=== PATIENT | female | born 2000 | race Caucasian/White ===

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

== ENCOUNTER 2019-03-08 01:25 | Outpatient (CLI) | payer MEDICAID, SELFPAY ==
--- NOTE | 2019-03-08 15:04 | DI.MRI_ITS ---
EXAM: MR BRAIN WO CLINICAL HISTORY: paraesthesias, ?MS R20.2 PARESTHESIA OF SKIN TECHNIQUE: Multiplanar multisequence MRI of the brain was performed. COMPARISON: No exams were available for comparison FINDINGS: The ventricular system is normal in appearances. No signal abnormality identified in the brain. The orbital and temporal bone structures appears intact as does the pituitary. Diffusion weighted imaging shows No evidence of infarction. Susceptibility weighted imaging shows no evidence of intracranial hemorrhage. There is normal flow void in the skull valley of Page vasculature. IMPRESSION: Normal brain MRI
== END 2019-03-08 01:45 ==
PROVIDERS: PCP Pediatrics; Visit Provider Psychiatry & Neurology Neurology
DX: R20.2 Paresthesia of skin (principal)
CPT/HCPCS: 70551

== ENCOUNTER 2020-05-02 11:27 | Outpatient (REF) | payer MEDICAID, SELFPAY ==
--- NOTE | 2020-05-02 11:00 | PAPFT_PTH ---
PATIENT: Arabella Whaley LOC: [facility] U#:[id number] AGE/SX: 20/F ROOM: RE05/02/[address]: Ivette Woods APRN : 2000 BED: DIS: 05/02/2020 SPEC #: [id number] RECD: 05/02/20 12:52 STATUS: JACK REQ #: [id number] GEORGE: 05/02/20 11:[address]: Ivtete Woods DEPT: [facility] Cytology RECD BY: Arlin Mccarty ENTERED: 05/02/20 12:53 SP TYPE: PAPFT OTHR DR: Susanna Morrison APRN Tissues: 1 - CX/ENDOCX FOR PAP SMEARS Procedures: PAP THIN PREP/UVM Screening Comments: [id number]
[2020-05-05 14:57] LABS: Chlamydia Result Negative (Negative); GC Result Negative (Negative)
== END 2020-05-02 11:28 | disposition home or self-care (01) ==
LOC: LBN 11:27
PROVIDERS: PCP Nurse Practitioner; Referring Provider Nurse Practitioner; Visit Provider Nurse Practitioner Adult Health
DX: Z11.3 Encounter for screening for infections with a predominantly sexual mode of transmission (principal); Z12.4 Encounter for screening for malignant neoplasm of cervix
CPT/HCPCS: 87491; 87591; 88142; 87480; 87510; 87660

== ENCOUNTER 2020-10-13 16:52 | Emergency (ER) | payer MEDICAID, SELFPAY ==
[2020-10-13 17:12] VITALS: BP 154/110; PULSE 106; RESP 18; TEMP 36.8; O2SAT 99
[2020-10-13 19:30] LABS: Abs Immature Grans 0.01 10^3/uL (0.0-0.06); Absolute Basophil Count 0.09 10^3/uL (0.0-0.2); Absolute Eosinophil Count 0.18 10^3/uL (0.0-0.7); Absolute Lymphocyte Count 2.89 10^3/uL (1.2-3.4); Absolute Monocyte Count 0.87 10^3/uL (0.1-0.8); Absolute Neutrophil Count 5.89 10^3/uL (1.2-6.7); Basophils % 0.9; Eosinophils % 1.8; HCT 41.7 % (36.0-46.0); HGB 13.3 g/dL (11.2-15.7); Immature Grans % 0.1; Lymphocytes % 29.1; MCH 29.4 pg (27.0-33.0); MCHC 31.9 % (32.0-36.0); MCV 92.1 fL (80-95); MPV 9.6 fL (8.0-11.0); Monocytes % 8.8; Neutrophils % 59.3; Nucleated RBC 0 %; Platelet Count 299 10^3/uL (130-400); RBC 4.53 10^6/uL (3.93-5.22); RDW 11.9 % (11.7-14.6); RDW-SD 40.2 fL; WBC 9.93 10^3/uL (4.4-10.8)
[2020-10-13 19:41] LABS: ALT 40 U/L (14-59); AST 22 U/L (15-37); Albumin 3.5 g/dL (3.4-5.0); Alkaline Phosphatase 84 U/L (46-116); Anion Gap 6.4 mmol/L (3-11); BUN 14 mg/dL (7-18); Bilirubin, Total 0.1 mg/dL (0.2-1.0); CO2 29.6 mmol/L (21.0-32.0); CREATININE 0.9 mg/dL (0.55-1.02); Calcium 8.8 mg/dL (8.5-10.1); Chloride 103 mmol/L (98-107); Glucose 90 mg/dL (74-106); Potassium 3.4 mmol/L (3.5-5.1); Sodium 139 mmol/L (136-145); Total Protein 8.1 g/dL (6.4-8.2)
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
[2020-10-13] MEDS: cefTRIAXone 250 MG VIAL 500 MG IM (20:03)
[2020-10-13] MEDS: Hepatitis B Virus Vaccine 20 MCG/ML VIAL IM (20:04)
[2020-10-13] MEDS: Azithromycin 250 MG TAB 1000 MG PO (20:05)
[2020-10-13] MEDS: Raltegravir Potassium 400 MG TAB PO (20:05)
[2020-10-13] MEDS: metroNIDAZOLE 500 MG TAB 2000 MG PO (20:05)
[2020-10-13] MEDS: Levonorgestrel 1.5 MG KIT/PACKET PO (20:06)
[2020-10-13] MEDS: Ondansetron O.D.T. 4 MG TABEF, 3 TABS/BTL PO (20:07)
[2020-10-13 20:45] VITALS: BP 149/97; PULSE 96; RESP 20; TEMP 36.8; O2SAT 100
[2020-10-14 17:48] LABS: Hepatitis B Surface Ag Negative (Negative)
[2020-10-14 18:20] LABS: Hepatitis C Ab w Rflx HCV PCR Negative (Negative)
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
--- NOTE | 2020-10-16 09:40 | NUR.NOTE ---
amadeo thompson [id number] Note:
--- NOTE | 2020-10-21 15:18 | NUR.NOTE ---
left message stating that I mailed a newer version of the billing exception form to her to look over. Nursing Note:
== END 2020-10-13 20:41 | disposition home or self-care (01) ==
PROVIDERS: Emergency Provider Physician Assistant; PCP Nurse Practitioner
DX: T74.21XA Adult sexual abuse, confirmed, initial encounter (principal)
CPT/HCPCS: 80053; 81025; 86803; 87340; 90471; 96372; 99285; 85025; 99284; J0696

== ENCOUNTER 2020-10-29 22:07 | Outpatient (REF) | payer MEDICAID, SELFPAY ==
[2020-10-31 14:26] LABS: Chlamydia Result Negative (Negative); GC Result Negative (Negative)
== END 2020-10-29 22:08 | disposition home or self-care (01) ==
LOC: LBN 22:07
PROVIDERS: PCP Nurse Practitioner; Visit Provider Nurse Practitioner
DX: Z11.3 Encounter for screening for infections with a predominantly sexual mode of transmission (principal)
CPT/HCPCS: 87491; 87591

== ENCOUNTER 2021-09-03 18:46 | Outpatient (CLI) | payer MEDICAID, SELFPAY ==
--- NOTE | 2021-09-03 18:45 | RT.EKG_ITS ---
APPROVED REPORT Exam: Resting ECG Reason for Exam: chest discomfort Patient Location: O HR:105 bpm ECG Measurements Heart Rate 105 AXIS CA 105 P 54 QRSd 84 QRS 81 QT 334 T 66 QTc 442 Conclusion Sinus tachycardia...rate> 99 Otherwise normal
== END 2021-09-03 18:47 | disposition home or self-care (01) ==
LOC: DI.CM 18:47
PROVIDERS: PCP Nurse Practitioner; Visit Provider Nurse Practitioner Family
DX: R07.89 Other chest pain (principal); R94.31 Abnormal electrocardiogram [ECG] [EKG]; R00.0 Tachycardia, unspecified
CPT/HCPCS: 93010

== ENCOUNTER 2021-09-03 19:12 | Outpatient (REF) | payer MEDICAID, SELFPAY | END 2021-09-03 19:13 | disposition home or self-care (01) | LOC: LBN 19:12 | PROVIDERS: PCP Nurse Practitioner; Visit Provider Nurse Practitioner Family | DX: J02.9 Acute pharyngitis, unspecified (principal) | CPT/HCPCS: 87070 ==

== ENCOUNTER 2021-09-04 01:06 | Outpatient (CLI) | payer MEDICAID, SELFPAY ==
--- OUTSIDE RECORDS SUMMARY | 2021-09-04 01:08 | XMS_ITS | Encounter Summary ---
:2000 [place] [address] Care Team Providers Name Role Phone Susanna Morrison APRN Primary Care Provider Reason for Visit Consultation (Routine) - Closed Specialty Diagnoses / Procedures Referred By Contact Refer red To Contact Maxillofacial Surgery Diagnoses extract 16, 32 *07-18-20 PANO* Sampson Myers DDS [facility] [address] [address] Phone: Fax: Referral ID Status Reason Start Date Expiration Date Visits Requ ested Visits Authorized [id number] Closed 09/09/2020 09/09/2021 1 1 Encounter Details Date Type Department Care Team Description 12/12/2020 TH Visit Maxillofacial Surgery at [facility], Impacted teeth (TeleHealth) [facility] [place] [address] MAXILLOFACIAL SURGERY [place], [place] [address] Social History Tobacco Use Types Packs/Day Years Used Date Never Assessed Sex Assigned at Date Recorded Not on file documented as of this encounter Progress Notes [facility] - 12/12/2020 1:00 PM EDT Images from the original note were not included. [facility] TELEHEALTH ENCOUNTER Name: Arabella Whaley Age/Sex: 20 y.o. female History of Present Illness Arabella Whaley is a 20 y.o. female referred by Sampson Myers for consultation regarding dental extractions. Specifically, third molars. This was a telehealth encounter and the patient has been informed that it may be billed as a typicalclinic visit. The visit today was conducted via telephone. This was feasible given the availability of [facility] imaging. A complete history of the Arabella 's symptoms and physical signs were reviewed with attention to initial findings and progression, pain, bleeding, swelling, drainage, dysphagia, odynophagia, paresthesia, dysarthria and systemic effects. Pertinent notations from today's history: ??? Patient reports experiencing symptoms including episodic pressure-like pain, worse with out her retainer, mainly the back right but all regions have hurt ??? Notes that her lower left third molar is absent ??? She previously had braces, finished these in around eighth grade ??? Denies prior surgeries ??? Daily medications include Wellbutrin on control pill ??? Reports allergy to penicillin described as hives ??? Estimated height 5 foot 6 inches weight 120 pounds ??? Denies smoking, vaping, drug use. Does drink alcohol occasionally on a social basis ??? Currently enrolled in college Past Medical/Social/Dental History No past medical history on file. There is no problem list on file for this patient. Social History Tobacco Use ??? Smoking status: Not on file ??? Smokeless tobacco: Not on file Substance Use Topics ??? Alcohol use: Not on file No current outpatient medications on file. Not on File Review of Systems Pertinent positive and negative findings discussed above. ROS with attention to cardiac, pulmonary, hepatic, renal, neurologic and dermatologic systems reviewed with relevant findings as noted. Physical Exam Could not complete physical exam in the setting of the telephone encounter. Imaging [facility] dated 07/18/2020 per referral demonstrating complete bony impacted #1, 16, 32. #17 appears anatomically absent. There does not appear to be functional space for the third molars given her age and their morphology Personally reviewed and evaluated ASSESSMENT & RECOMMENDATIONS Assessment: impacted #1,16,32 Recommendations/plan: Will plan for extraction of #1,16,32 in the setting of impaction and symptoms as above After discussion of the risks/benefits of local anesthesia vs. IV sedation vs. general anesthesia inthe clinical scenario of the patient's presentation, we will opt to plan for IV sedation in clinic. Consent forms: The appropriate consent forms will be reviewed and signed the day of the procedure.. NPO instructions were reviewed. I explained my role as the physician research assistant member with the OMFS team, and the oral surgeons Dr. Logan and Dr. Quintanilla. Direct review of the findings on clinical and radiographic exam as well as a discussion of the risksand anticipated benefits of the proposed surgical intervention was had. The possibility of bleeding,infection, injury to adjacent teeth, nerves and sinuses was reviewed with specific attention to inferior alveolar and lingual nerves and the potential for tongue and/or lip paresthesia. The unlikely event of jaw fracture during the procedure was discussed as well. Persistent opening or fistula to the maxillary sinus was also discussed. Arabella Whaley was given the opportunity to ask questions regarding the findings on clinical and radiographic examination and the recommended treatment. Preoperative and postoperative management was also discussed with specific attention to post operative alteration of diet and physical activity andthe proper use of analgesics. We appreciate the opportunity to be involved in Ms. Whaley's care. [facility] Oral-Maxillofacial Surgery 12/12/2020 Supervising physician: Inocencio Logan MD, DMD This note may have incorporated cjbgg-ot-huff technology and though reviewed typographical or syntaxerrors may remain. documented in this encounter Plan of Treatment Not on filedocumented as of this encounter Visit Diagnoses Diagnosis Impacted teeth documented in this encounter Care Teams Clay Dry Press Mixer Operator Relationship Specialty Start Date End Date Susanna Morrison APRN PCP - General Internal Medicine 11/04/[address] [place] [address] documented as of this encounter
--- OUTSIDE RECORDS SUMMARY | 2021-09-04 01:08 | XMS_ITS | Clinical Summary ---
:2000 Author Organization [facility] [place] [address] Care Team Providers Name Role Phone Susanna Morrison APRN Primary Care Provider Social History Tobacco Use Types Packs/Day Years Used Date Never Assessed Sex Assigned at Date Recorded Not on file Plan of Treatment Health Maintenance Due Date Last Done Comments Covid-19 Vaccine (#1) 01/24/2004 HPV vaccine (1 - 2-dose series) 2010 Chlamydia Screening, female 15-25 2014 HIV screen 2017 Hepatitis C Screening 2017 Tdap adult 2018 Tetanus vaccine 2018 PAP Smear 01/24/2020 Influenza (Flu) vaccine (1 of 1 - Influenza standard 10/08/2021 series) Insurance Payer Benefit Plan / Subscriber ID Effective Dates Phone Addre ss Type Group [place] [id number] 2017-[place] [phone] [address] [facility] [address] [place], [place] [phone] Care Teams Power Hammer Operator Relationship Specialty Start Date End Date Susanna Morrison APRN PCP - General Internal Medicine 11/04/20 [address] [place] [address]
--- OUTSIDE RECORDS SUMMARY | 2021-09-04 01:09 | XMS_ITS | Clinical Summary ---
:2000 Demographics Home Phone Preferred Language Unknown Marital Status Unknown Rastafari Affiliation Unknown Race Unknown Ethnic Group Unknown Author Organization [facility] Address [address] [place] [address] Care Team Providers Name Role Phone Unavailable Primary Care Provider Unavailable Social History Tobacco Use Types Packs/Day Years Used Date Never Assessed Sex Assigned at Date Recorded Not on file Plan of Treatment Health Maintenance Due Date Last Done Comments COVID-19 Vaccine (1) 2011 Hepatitis C Screen Completed 10/13/2020
--- OUTSIDE RECORDS SUMMARY | 2021-09-04 01:09 | XMS_ITS | Encounter Summary ---
:2000 Demographics Home Phone Preferred Language Unknown Marital Status Unknown Tenriism Affiliation Unknown Race Unknown Ethnic Group Unknown Author Organization [facility] Address [address] [place] [address] Care Team Providers Name Role Phone Unavailable Primary Care Provider Unavailable Encounter Details Date Type Department Care Team Description 10/14/2020 Lab Requisition [facility] Outr Resulting Lab, Pathology & Laboratory Provider [facility] [address] [place] [address] Social History Tobacco Use Types Packs/Day Years Used Date Never Assessed Sex Assigned at Date Recorded Not on file documented as of this encounter Plan of Treatment Not on filedocumented as of this encounter Procedures Procedure Name Priority Date/Time Associated Diagnosis Comme nts HEPATITIS C AB W Routine 10/13/2020 19:15 Results for this REFLEX TO HCV RNA EDT procedure are in BY PCR the results section. HEPATITIS B SURFACE Routine 10/13/2020 19:15 Resu lts for this ANTIGEN EDT procedure are i n the results section. documented in this encounter Results HEPATITIS B SURFACE ANTIGEN (10/13/2020 19:15 EDT) Pathologist Sig nature Hep B Surface Ag Negative Negative [facility] Specimen Blood - Venous blood (substance) Performing Organization Address [facility]/ZIP Code Phon e Number [facility] [address] [place] [address] SERVICES HEPATITIS C AB W REFLEX TO HCV RNA BY PCR (10/13/2020 19:15 EDT) Pathologist Sig nature Hep C Antibody Negative Negative [facility] Specimen Blood - Venous blood (substance) Performing Organization Address [facility]/ZIP Code Phon e Number [facility] [address] [place] [address] SERVICES documented in this encounter Visit Diagnoses Not on filedocumented in this encounter
--- OUTSIDE RECORDS SUMMARY | 2021-09-04 01:09 | XMS_ITS | Encounter Summary ---
:2000 Demographics Home Phone Preferred Language Unknown Marital Status Unknown Jehovah'S Witness Affiliation Unknown Race Unknown Ethnic Group Unknown Author Organization [facility] Address [address] [place] [address] Care Team Providers Name Role Phone Unavailable Primary Care Provider Unavailable Encounter Details Date Type Department Care Team Description 05/02/2020 Lab Requisition [facility] Outr Resulting Lab, Pathology & Laboratory Provider [facility] [address] [place] [address] Social History Tobacco Use Types Packs/Day Years Used Date Never Assessed Sex Assigned at Date Recorded Not on file documented as of this encounter Plan of Treatment Not on filedocumented as of this encounter Procedures Procedure Name Priority Date/Time Associated Comments Diagnosis CHLAMYDIA/N. Routine 05/02/2020 11:00 Results for this GONORRHOEAE AMPLIFIED EDT proced ure are in RNA the results section. documented in this encounter Results CHLAMYDIA/N. GONORRHOEAE AMPLIFIED RNA (05/02/2020 11:00 EDT) Pathologist Sig nature Gonococcus Result Negative Negative [facility] Chlamydia Result Negative Negative [facility] Specimen Swab - Entire endocervix (body structure ) Performing Organization Address City/State/ZIP Code Phon e Number [facility] [address] [place] [address] SERVICES documented in this encounter Visit Diagnoses Not on filedocumented in this encounter
--- OUTSIDE RECORDS SUMMARY | 2021-09-04 01:09 | XMS_ITS | Encounter Summary ---
:2000 Demographics Home Phone Preferred Language Unknown Marital Status Unknown Christianity Affiliation Unknown Race Unknown Ethnic Group Unknown Author Organization [facility] Address [address] [place] [address] Care Team Providers Name Role Phone Unavailable Primary Care Provider Unavailable Encounter Details Date Type Department Care Team Description 10/30/2020 Lab Requisition [facility] Outr Resulting Lab, Pathology & Laboratory Provider [facility] [address] [place] [address] Social History Tobacco Use Types Packs/Day Years Used Date Never Assessed Sex Assigned at Date Recorded Not on file documented as of this encounter Plan of Treatment Not on filedocumented as of this encounter Procedures Procedure Name Priority Date/Time Associated Comments Diagnosis CHLAMYDIA/N. Routine 10/29/2020 16:35 Results for this GONORRHOEAE AMPLIFIED EDT proced ure are in RNA the results section. documented in this encounter Results CHLAMYDIA/N. GONORRHOEAE AMPLIFIED RNA (10/29/2020 16:35 EDT) Pathologist Sig nature Gonococcus Result Negative Negative [facility] Chlamydia Result Negative Negative [facility] Specimen Urine - Urine, Initial Void Narrative [facility] - 10/31/2020 14:21 EDT A first catch urine specimen is acceptab le for detection of Gonorrhea and Chlamydia, but might detect up to 10% fewer infecti ons when compared with vaginal and endocervical swab samples. Performing Organization Address City/State/ZIP Code Phon e Number [facility] [address] [place] [address] SERVICES documented in this encounter Visit Diagnoses Not on filedocumented in this encounter
[2021-09-04 12:29] LABS: Abs Immature Grans 0.02 10^3/uL (0.0-0.06); Absolute Basophil Count 0.09 10^3/uL (0.0-0.2); Absolute Eosinophil Count 0.12 10^3/uL (0.0-0.7); Absolute Lymphocyte Count 2.35 10^3/uL (1.2-3.4); Absolute Monocyte Count 1.16 10^3/uL (0.1-0.8); Basophils % 0.8; Eosinophils % 1.1; HGB 13.5 g/dL (11.2-15.7); Immature Grans % 0.2; Lymphocytes % 21.5; MCHC 32.1 % (32.0-36.0); MCV 90 fL (80-95); MPV 11.4 fL (8.0-11.0); Monocytes % 10.6; Neutrophils % 65.8; Platelet Count 170 10^3/uL (130-400); RBC 4.65 10^6/uL (3.93-5.22); RDW 11.9 % (11.7-14.6); RDW-SD 39.5 fL; WBC 10.92 10^3/uL (4.4-10.8)
[2021-09-04 12:30] LABS: Absolute Neutrophil Count 7.19 10^3/uL (1.2-6.7)
[2021-09-04 13:03] LABS: ALT 29 U/L (14-59); AST 21 U/L (15-37); Alkaline Phosphatase 91 U/L (46-116); Anion Gap 13.1 mmol/L (3-11); BUN 15 mg/dL (7-18); Bilirubin, Total 0.4 mg/dL (0.2-1.0); CO2 22.9 mmol/L (21.0-32.0); Calcium 9.1 mg/dL (8.5-10.1); Chloride 101 mmol/L (98-107); Glucose 77 mg/dL (74-106); Potassium 4.2 mmol/L (3.5-5.1); Sodium 137 mmol/L (136-145); TSH 2.06 uIU/mL (0.36-3.74)
[2021-09-07 11:43] LABS: Lyme Ab w Rflx to Lyme Confirm Negative (Negative)
[2021-09-10 21:21] LABS: Anaplasma phagocytophilum Negative (Negative); B. miyamotoi PCR Negative (Negative); Babesia divergens/MO-1 Negative (Negative); Babesia duncani Negative (Negative); Babesia microti Negative (Negative); Ehrlichia chaffeensis Negative (Negative); Ehrlichia ewingii/canis Negative (Negative); Ehrlichia muris eauclairensis Negative (Negative)
== END 2021-09-04 01:07 | disposition home or self-care (01) ==
LOC: LOS 01:07
PROVIDERS: PCP Nurse Practitioner; Visit Provider Nurse Practitioner Family
DX: R00.0 Tachycardia, unspecified (principal); B34.9 Viral infection, unspecified
CPT/HCPCS: 36415; 80053; 87798; 84443; 85025; 86618

== ENCOUNTER 2023-02-18 14:48 | Outpatient (RCR) | payer MEDICAID, SELFPAY ==
--- NOTE | 2023-02-18 14:45 | HOLTER_ITS ---
APPROVED REPORT Exam Type: HOLTER MONITOR APPLICATION Reason for Test: dizziness, tachycardia random times Patient Location: O Conclusion 1. Sinus rhythm throughout, rate range 68-159(average 91) bpm 2. No ectopy recorded
== END 2023-03-09 23:59 | disposition home or self-care (01) ==
LOC: CARDOPNVT 14:48
PROVIDERS: PCP Nurse Practitioner; Visit Provider Internal Medicine Cardiovascular Disease
DX: R00.0 Tachycardia, unspecified (principal)
CPT/HCPCS: 93225; 93226

== ENCOUNTER 2024-02-14 14:29 | Outpatient (REF) | payer BC, SELFPAY ==
--- NOTE | 2024-02-14 14:15 | PAPFT_PTH ---
PATIENT: Arabella Whaley LOC: [facility] U#:[id number] AGE/SX: 24/F ROOM: RE02/14/[address]: Susanna Morrison APRN : 2000 BED: DIS: 02/14/2024 SPEC #: [id number] RECD: 02/14/24 17:55 STATUS: JACK REChiki #: [id number] GEORGE: 02/14/24 14:[address]: Susanna Morrison DEPT: [facility] Cytology RECD BY: Arlin Mccarty Tissues: 1 - CX/ENDOCX FOR PAP SMEARS Procedures: PAP THIN PREP/[facility] Screening HPV DNA PROBE Comments: [id number] (HPV 16 & 18/45) (CHLAMYDIA/GC)
[2024-02-15 11:16] LABS: Chlamydia Result Negative (Negative); GC Result Negative (Negative)
== END 2024-02-14 14:30 | disposition home or self-care (01) ==
LOC: LBN 14:29
PROVIDERS: PCP Nurse Practitioner; Visit Provider Nurse Practitioner
DX: Z12.4 Encounter for screening for malignant neoplasm of cervix (principal); Z11.3 Encounter for screening for infections with a predominantly sexual mode of transmission
CPT/HCPCS: 87491; 87591; 88142; 87624